=== PATIENT | female | born 1950 | race American Indian/Alaskan Native ===

== ENCOUNTER 2018-11-09 17:10 | Emergency (ER) | payer MEDICARE ==
--- NOTE | 2018-11-09 17:30 | Emergency Department Report ---
Blank Doc - Documentation Documentation: This is a 68-year-old female that presents with generlized body aches and weak ness. This initial assessment/diagnostic orders/clinical plan/treatment(s) is/are subject to change based on patient's health status, clinical progression and re- assessment by fellow clinical providers in the ED. Further treatment and workup at subsequent clinical providers discretion. Patient/guardians urged not to elope from the ED as their condition may be serious if not clinically assessed and managed. Initial orders include: 1- Patient sent to MAIN ED for further evaluation and treatment 2- labs 3- UA
[2018-11-09 18:14] LABS: Basophils % (Auto) 0.4 % (0.0-1.8); Eosinophils # (Auto) 0.1 K/mm3 (0.0-0.4); Eosinophils % (Auto) 1.2 % (0.0-4.3); Hemoglobin 13.6 gm/dl (10.1-14.3); Lymphocytes # (Auto) 3.3 K/mm3 (1.2-5.4); Mean Corpuscular HGB Conc 33 % (30-34); Mean Corpuscular Volume 83 fl (79-97); Monocytes # (Auto) 0.5 K/mm3 (0.0-0.8); Monocytes % (Auto) 8.7 % (0.0-7.3); Platelet Count 287 K/mm3 (140-440); Red Blood Count 4.97 M/mm3 (3.65-5.03); Red Cell Distribution Width 13.2 % (13.2-15.2)
[2018-11-09 18:28] LABS: Alanine Aminotransferase 8 units/L (7-56); Albumin 4.2 g/dL (3.9-5); BUN/Creatinine Ratio 28; Blood Urea Nitrogen 14 mg/dL (7-17); Calcium 10.2 mg/dL (8.4-10.2); Hemolysis Index 4
[2018-11-09 18:41] LABS: Bacteria,Urine 2+ /HPF (Negative); Bilirubin,Urine NEG (Negative); Blood,Urine SM (Negative); Color,Urine Yellow (Yellow); Mucus,Urine FEW /HPF; Protein,Urine <15 mg/dL mg/dL (Negative); Urobilinogen,Urine < 2.0 mg/dL (<2.0)
[2018-11-09] MEDS ORDERED: TORADOL IV ONE (21:01)
[2018-11-09] MEDS ORDERED: MORPHINE IV ONE (21:01)
[2018-11-09] MEDS ORDERED: NACL 0.9% 1000 ML 1,000 ML IV ONE (21:01)
[2018-11-09] MEDS ORDERED: MACROBID PO ONE (21:02)
[2018-11-09] MEDS ORDERED: NACL 0.9% 500 ML 500 ML IV ONE (21:02)
--- NOTE | 2018-11-09 21:03 | Emergency Department Report ---
ED General Adult HPI - General Chief complaint: Back Pain/Injury Stated complaint: WEAKNESS IN LEGS/PAIN Time Seen by Provider: 11/09/18 17:29 Source: patient, family, RN notes reviewed Mode of arrival: Wheelchair Limitations: No Limitations - History of Present Illness Initial comments: This is a 68-year-old female. This patient is not known to this provider previously. The patient moved here from [facility] approximately 6 weeks ago. Her past medical history includes diabetes, hypertension, chronic back pain, probable peripheral neuropathy The patient presents to the ER with complaint of nontraumatic bilateral anterior quadricep pain, moving down the anterior legs, present for a few months, pubic pain, which does not radiate anywhere, present for 2 days, and chronic lower back pain, present for a few months. Patient describes the pain as burning, aching and throbbing. It increases with palpation and range of motion. It dec reases with rest. Patient has been taking ibuprofen and gabapentin, withno improvement in symptoms. She has received injections for her chronic back pain in the past. She denies extremity weakness. She denies bladder or bowel retention or incontinence. She denies saddle anesthesia. She's not sure she's having burning or pain when she peas. She has chronic headache. She has no loss of vision. She endorses a dry cough. She denies exertional shortness of breath. She denies chest pain. She has chronic skin discoloration. -: Gradual Location: back, left, right, lower extremity Radiation: extremity Quality: other Consistency: other Improves with: other Worsens with: other - Related Data Previous Rx's Medication Instructions Recorded Last Taken Type Acetaminophen [Non-Aspirin Extra 500 mg PO Q6HR PRN #30 tablet 11/09/18 Unknown Rx Strength] Ibuprofen [Motrin] 600 mg PO Q8H PRN #30 tablet 11/09/18 Unknown Rx Nitrofurantoin [place]/M-Cryst 100 mg PO Q12HR #13 capsule 11/09/18 Unknown Rx [Macrobid CAP] Allergies Allergy/AdvReac Type Severity Reaction Status Date / Time No Known Allergies Allergy Unverified 11/09/18 17:14 ED Review of Systems ROS: Stated complaint: WEAKNESS IN LEGS/PAIN Other details as noted in HPI Constitutional: malaise. denies: fever Eyes: denies: eye discharge ENT: congestion. denies: epistaxis Respiratory: cough Cardiovascular: denies: chest pain Gastrointestinal: abdominal pain Genitourinary: denies: dysuria Musculoskeletal: back pain, arthralgia, myalgia Skin: rash, lesions Neurological: denies: weakness Hematological/Lymphatic: denies: easy bleeding ED Past Medical Hx - Past Medical History Previous Medical History?: Yes Hx Hypertension: Yes Hx Diabetes: Yes - Surgical History Past Surgical History?: No - Social History Smoking Status: Never Smoker Substance Use Type: None - Medications Home Medications: Home Medications Medication Instructions Recorded Confirmed Last Taken Type Acetaminophen [Non-Aspirin Extra 500 mg PO Q6HR PRN #30 tablet 11/09/18 Unknown Rx Strength] Ibuprofen [Motrin] 600 mg PO Q8H PRN #30 tablet 11/09/18 Unknown Rx Nitrofurantoin [place]/M-Cryst 100 mg PO Q12HR #13 capsule 11/09/18 Unknown Rx [Macrobid CAP] ED Physical Exam - General Limitations: No Limitations General appearance: alert, anxious - Head Head exam: Present: atraumatic, normocephalic - Eye Eye exam: Present: normal appearance, EOMI. Absent: nystagmus - ENT ENT exam: Present: normal exam, normal orophraynx, mucous membranes moist, normal external ear exam - Neck Neck exam: Present: normal inspection, full ROM. Absent: tenderness, meningismus - Respiratory Respiratory exam: Present: normal lung sounds bilaterally. Absent: respiratory distress - Cardiovascular Cardiovascular Exam: Present: regular rate, normal rhythm, normal heart sounds. Absent: bradycardia, tachycardia, irregular rhythm, systolic murmur, diastolic murmur, rubs, gallop - GI/Abdominal GI/Abdominal exam: Present: soft. Absent: distended, tenderness, guarding, rebound, rigid, pulsatile mass - Extremities Exam Extremities exam: Present: normal inspection, full ROM, other (there is no long bony tenderness. The compartments are soft. The pelvis is stable. 2+ pulses noted in the bilateral upper, lower extremities.). Absent: pedal edema, joint swelling, calf tenderness - Back Exam Back exam: Present: normal inspection, full ROM, paraspinal tenderness. Absent: tenderness, CVA tenderness (R), CVA tenderness (L), vertebral tenderness - Neurological Exam Neurological exam: Present: alert, oriented X3, normal gait, other (there is no facial droop. The tongue is midline. Extraocular movements are intact bilaterally. There is 5 out of 5 strength in the bilateral upper, lower extremities. Sensation is intact to light touch in the bilateral upper, lower extremities.). Absent: motor sensory deficit - Psychiatric Psychiatric exam: Present: anxious - Skin Skin exam: Present: warm, dry, intact, normal color. Absent: rash ED Course Vital Signs 11/09/18 11/09/18 11/09/18 17:29 21:08 22:00 Temperature 97.6 F 97.8 F Pulse Rate 88 88 83 Respiratory 18 24 17 Rate Blood Pressure 171/85 186/82 Blood Pressure 176/79 [Left] O2 Sat by Pulse 99 100 100 Oximetry 11/09/18 22:30 Temperature Pulse Rate 84 Respiratory 16 Rate Blood Pressure 187/83 Blood Pressure [Left] O2 Sat by Pulse 100 Oximetry - Reevaluation(s) Reevaluation #1: 11/09/18 22:12 Differential diagnosis, including but not limited to: Peripheral neuropathy, diabetic neuropathy, DJD, arthritis, AAA, urinary tract infection, appendicitis, renal colic, Assessment and plan: 68-year-old female with a complaint of months of lower extremity pain, likely diabetic neuropathy, walks with a steady gait, has no focal neurologic deficits, no midline spinal tenderness, no indication of epidural compression syndrome, likely presenting with natural expected progression of underlying DJD, and presumed diabetic neuropathy. Laboratory studies reviewed and are appreciated, and appear to be unremarkable. Urinalysis suggests urinary tract infection. We will treat the patient's pain, and obtain CT scan of the abdomen and pelvis, although clinically do not suspect AAA or other acute surgical process. Patient and daughter were counseled on the need to follow up with local outpatient primary care for initiation and continuation of primary care in this state, she can also follow up with outpatient physical therapy and/or pain management. We discussed how glycemic control over a chronic period of time may improve neuropathy symptoms. the daughter and patient have verbalized understanding. Reevaluation #2: 11/09/18 23:27 Patient resting comfortably, and in no acute distress. CT scan of the abdomen and pelvis is reviewed and appreciated IMPRESSION: 1. There is distended with urine and air. Question recent catheterization. 2. Suspect mild chronic dilatation at the lower pole collecting system left kidney. 3. Moderate colonic stool. Patient does state that she received a urinary catheterization relatively recently. She'll be instructed to follow-up with outpatient urology for incidental findings. ED Medical Decision Making - Lab Data Result diagrams: 11/09/18 17:46 11/09/18 17:46 Vital Signs 11/09/18 11/09/18 17:29 21:08 Temperature 97.6 F 97.8 F Pulse Rate 88 88 Respiratory 18 24 Rate Blood Pressure 171/85 Blood Pressure 176/79 [Left] O2 Sat by Pulse 99 100 Oximetry Lab Results 11/09/18 11/09/18 11/09/18 Range/Units 17:46 17:46 17:46 WBC 6.2 (4.5-11.0) K/mm3 RBC 4.97 (3.65-5.03) M/mm3 Hgb 13.6 (10.1-14.3) gm/dl Hct 41.0 (30.3-42.9) % MCV 83 (79-97) fl MCH 27 L (28-32) pg MCHC 33 (30-34) % RDW 13.2 (13.2-15.2) % Plt Count 287 (140-440) K/mm3 Lymph % (Auto) 53.0 H (13.4-35.0) % [place] % (Auto) 8.7 H (0.0-7.3) % Eos % (Auto) 1.2 (0.0-4.3) % Baso % (Auto) 0.4 (0.0-1.8) % Lymph # 3.3 (1.2-5.4) K/mm3 [place] # 0.5 (0.0-0.8) K/mm3 Eos # 0.1 (0.0-0.4) K/mm3 Baso # 0.0 (0.0-0.1) K/mm3 Seg Neutrophils % 36.7 L (40.0-70.0) % Seg Neutrophils # 2.3 (1.8-7.7) K/mm3 Sodium 135 L (137-145) mmol/L Potassium 4.4 (3.6-5.0) mmol/L Chloride 96.8 L (98-107) mmol/L Carbon Dioxide 24 (22-30) mmol/L Anion Gap 19 mmol/L BUN 14 (7-17) mg/dL Creatinine 0.5 L (0.7-1.2) mg/dL Estimated GFR > 60 ml/min BUN/Creatinine Ratio 28 % Glucose 162 H (65-100) mg/dL Calcium 10.2 (8.4-10.2) mg/dL Magnesium 1.80 (1.7-2.3) mg/dL Total Bilirubin 0.30 (0.1-1.2) mg/dL AST 12 (5-40) units/L ALT 8 (7-56) units/L Alkaline Phosphatase 76 (35-129) units/L Total Creatine Kinase 72 (30-135) units/L Total Protein 7.6 (6.3-8.2) g/dL Albumin 4.2 (3.9-5) g/dL Albumin/Globulin Ratio 1.2 % Urine Color (Yellow) Urine Turbidity (Clear) Urine pH (5.0-7.0) Ur Specific [place] (1.003-1.030) Urine Protein (Negative) mg/dL Urine Glucose (UA) (Negative) mg/dL Urine Ketones (Negative) mg/dL Urine Blood (Negative) Urine Nitrite (Negative) Urine Bilirubin (Negative) Urine Urobilinogen (<2.0) mg/dL Ur Leukocyte Esterase (Negative) Urine WBC (Auto) (0.0-6.0) /HPF Urine RBC (Auto) (0.0-6.0) /HPF U Epithel Cells (Auto) (0-13.0) /HPF Urine Bacteria (Auto) (Negative) /HPF Urine Mucus /HPF 11/09/18 Range/Units 17:49 WBC (4.5-11.0) K/mm3 RBC (3.65-5.03) M/mm3 Hgb (10.1-14.3) gm/dl Hct (30.3-42.9) % MCV (79-97) fl MCH (28-32) pg MCHC (30-34) % RDW (13.2-15.2) % Plt Count (140-440) K/mm3 Lymph % (Auto) (13.4-35.0) % [place] % (Auto) (0.0-7.3) % Eos % (Auto) (0.0-4.3) % Baso % (Auto) (0.0-1.8) % Lymph # (1.2-5.4) K/mm3 [place] # (0.0-0.8) K/mm3 Eos # (0.0-0.4) K/mm3 Baso # (0.0-0.1) K/mm3 Seg Neutrophils % (40.0-70.0) % Seg Neutrophils # (1.8-7.7) K/mm3 Sodium (137-145) mmol/L Potassium (3.6-5.0) mmol/L Chloride (98-107) mmol/L Carbon Dioxide (22-30) mmol/L Anion Gap mmol/L BUN (7-17) mg/dL Creatinine (0.7-1.2) mg/dL Estimated GFR ml/min BUN/Creatinine Ratio % Glucose (65-100) mg/dL Calcium (8.4-10.2) mg/dL Magnesium (1.7-2.3) mg/dL Total Bilirubin (0.1-1.2) mg/dL AST (5-40) units/L ALT (7-56) units/L Alkaline Phosphatase (35-129) units/L Total Creatine Kinase (30-135) units/L Total Protein (6.3-8.2) g/dL Albumin (3.9-5) g/dL Albumin/Globulin Ratio % Urine Color Yellow (Yellow) Urine Turbidity Slightly-cloudy (Clear) Urine pH 5.0 (5.0-7.0) Ur Specific [place] 1.011 (1.003-1.030) Urine Protein <15 mg/dl (Negative) mg/dL Urine Glucose (UA) Neg (Negative) mg/dL Urine Ketones Tr (Negative) mg/dL Urine Blood Sm (Negative) Urine Nitrite Pos (Negative) Urine Bilirubin Neg (Negative) Urine Urobilinogen < 2.0 (<2.0) mg/dL Ur Leukocyte Esterase Lg (Negative) Urine WBC (Auto) 26.0 H (0.0-6.0) /HPF Urine RBC (Auto) 4.0 (0.0-6.0) /HPF U Epithel Cells (Auto) 1.0 (0-13.0) /HPF Urine Bacteria (Auto) 2+ (Negative) /HPF Urine Mucus Few /HPF - Radiology Data Radiology results: report reviewed, image reviewed Print Report Referring Physician: ARAVIND ANDRADE Patient Name: SEAN CARIAS Date of : 1950 Sex: Female Report Date: 2018-11-09 Report Status: Finalized Findings [facility] [address] [place] [address] Cat Scan Report Signed Patient: SEAN CARIAS MR# : [id number] : 1950 Acct:[id number] Age/Sex: 68 / F ADM Date: 11/09/18 Loc: ED Attending Dr: Ordering Physician: ARAVIND ANDRADE MD Date of Service: 11/09/18 Procedure(s): CT abdomen pelvis wo con Accession Number(s): [id number] cc: ARAVIND ANDRADE MD CT abdomen pelvis wo con INDICATION: back pain suprapubic pain. TECHNIQUE: All CT scans at this location are performed using the following dose modulation technique: Automated exposure control. CONTRAST: None. COMPARISON: None available. CT abdomen: The parenchymal organs are unremarkable in appearance other than a probable small left renal cyst and mild dilatation of the lower pole left renal collecting system. Negative for abdominal mass, fluid collection or inflammation. The bowel is not dilated or thickened. Colonic stool is moderate. CT PELVIS: The bladder is distended and contains moderate air and fluid. Negative for wall thickening. There is no adjacent inflammation. A normal appendix is identified. IMPRESSION: 1. There is distended with urine and air. Question recent catheterization. 2. Suspect mild chronic dilatation at the lower pole collecting system left kidney. 3. Moderate colonic stool. Signer Name: Marc Travis MD Signed: 11/09/2018 10:28 PM Workstation Name: [id number] Transcribed By: ES Dictated By: Marc Travis MD Electronically Authenticated By: Marc Travis MD Signed Date/Time: 11/09/18 2650 Critical care attestation.: If time is entered above; I have spent that time in minutes in the direct care of this critically ill patient, excluding procedure time. ED Disposition Clinical Impression: Neuropathic pain, Chronic back pain, Suprapubic pain Disposition: DC-01 TO HOME OR SELFCARE Is pt being admited?: No Does the pt Need Aspirin: No Condition: Stable Instructions: Urinary Tract Infection in Women (ED), Diabetic Neuropathy (ED) Additional Instructions: Continue outpatient medications. Rest, avoid heavy lifting, and avoid strenuous physical activities. Take your outpatient medications as prescribed, and take the antibiotics as directed. Follow up with her primary care doctor within the next 2-4 weeks. Follow up with a pain specialist, such as Dr. Quiñones within the next 4-6 weeks. Cultures were sent today, and results will be available in the next 3-5 days. Have a primary care doctor contact the medical records department to obtain culture results. Return to the emergency room right away with new, worsening or different symptoms, or symptoms not present on initial emergency room evaluation. Dr. Juarez is a local urology specialist. Please follow up with him or one of his colleagues within the next 5-7 days for incidental findings noted on CT scan. Dr. Quiñones is a local pain specialist. [facility], [facility] are local primary care practice is available for the patient's convenience. Prescriptions: Nitrofurantoin [place]/M-Cryst [Macrobid CAP] 100 mg PO Q12HR #13 capsule Ibuprofen [Motrin] 600 mg PO Q8H PRN #30 tablet PRN Reason: Pain Acetaminophen [Non-Aspirin Extra Strength] 500 mg PO Q6HR PRN #30 tablet PRN Reason: Pain , Severe (7-10) Referrals: [facility]3] PRIMARY CARE [Provider Group] - 3-5 Days [facility] [Provider Group] - 3-5 Days NTAY BECKHAM MD [Staff Physician] - 3-5 Days MG QUIÑONES MD [Staff Physician] - 3-5 Days
--- NOTE | 2018-11-09 22:32 | Cat Scan Report ---
CT abdomen pelvis wo con INDICATION: back pain suprapubic pain. TECHNIQUE: All CT scans at this location are performed using the following dose modulation technique: Automated exposure control. CONTRAST: None. COMPARISON: None available. CT abdomen: The parenchymal organs are unremarkable in appearance other than a probable small left re nal cyst and mild dilatation of the lower pole left renal collecting system. Negative for abdominal m ass, fluid collection or inflammation. The bowel is not dilated or thickened. Colonic stool is modera te. CT PELVIS: The bladder is distended and contains moderate air and fluid. Negative for wall thickening . There is no adjacent inflammation. A normal appendix is identified. IMPRESSION: 1. There is distended with urine and air. Question recent catheterization. 2. Suspect mild chronic dilatation at the lower pole collecting system left kidney. 3. Moderate colonic stool. Signer Name: Marc Travis MD Signed: 11/09/2018 10:28 PM Workstation Name: [id number]
[2018-11-10 00:43] VITALS: BP 155/71
== END 2018-11-10 00:20 | disposition home or self-care (01) ==
LOC: ED 17:10
DX: M54.5 Low back pain (principal); G89.29 Other chronic pain; M79.2 Neuralgia and neuritis, unspecified; I10 Essential (primary) hypertension; E11.9 Type 2 diabetes mellitus without complications; M79.10 Myalgia, unspecified site; R10.30 Lower abdominal pain, unspecified; Z79.1 Long term (current) use of non-steroidal anti-inflammatories (NSAID); Z79.899 Other long term (current) drug therapy
CPT/HCPCS: 36415; 74176; 80053; 81001; 82550; 83735; 85025; 87076; 87086; 87186; 96374; 96375; 99284; J1885; J2270; J7040